=== PATIENT | male | born 1965 | race Caucasian/White ===

== ENCOUNTER 2021-07-09 16:25 | Inpatient (IN) | payer MEDICARE ==
[2021-07-09] MEDS ORDERED: NORCO 7.5/325 MG TAB PO PRN (17:01)
[2021-07-09 17:46] LABS: Absolute Neutrophil Ct (ANC) 13.47 (1.4-6.9); BASOPHIL % 0.2 % (0.0-0.4); Basophil (Absolute #) 0.03 (0-0.4); Eosinophil % 2.1 % (0.00-5.0); Eosinophil (Absolute #) 0.35 (0-0.5); Hemoglobin 9.3 gm/dl (12.5-18.0); Mean Corpuscular Hemoglobin 31.4 pg (26-32); Mean Corpuscular Hgb Concent. 32.1 g/dl (32-36); Mean Platelet Volume 9.2 fl (7.5-11.0); Monocyte (Absolute #) 1.34 (0.0-1.3); Neutrophil % 80.7 % (36.0-66.0); Platelet Count 294 K/mm3 (150-450); Red Blood Count 2.96 M/mm3 (4.1-5.6); Red Cell Distribution Width 15.7 % (11.5-14.0); White Blood Count 16.7 K/mm3 (4.0-10.5)
[2021-07-09] MEDS ORDERED: NEURONTIN 300 MG PO PRN (17:53)
[2021-07-09 17:55] LABS: ALBUMIN 3.7 g/dL (3.5-5.0); ANION GAP 16.6 MEQ/L (5-15); BILIRUBIN,TOTAL 0.2 mg/dL (0.2-1.3); Calcium 10.8 mg/dL (8.4-10.2); Creatinine 1 3.1 mg/dL (0.66-1.25); EST GLOMERULAR FILTRATION RATE 22.1 ML/MIN; Potassium 5.7 mmol/L (3.5-5.1); Total Protein 7.6 g/dL (6.3-8.2)
[2021-07-09] MEDS ORDERED: HYDROCODONE-ACETAMIN 10-325 MG PO PRN (17:55)
[2021-07-09] MEDS: MORPHINE SULFATE 4 MG INJ IV PRN ×2 (18:05→22:18)
[2021-07-09] MEDS: VANCOMYCIN 1 GRAM/200 ML BAG 1 GM/200 ML PIGGYBACK IV SCH (18:05)
[2021-07-09 18:57] LABS: Erythrocyte Sedimentation Rate 129 mm/hr (0-15)
[2021-07-09] MEDS: Zosyn 3.375 GM Vial 3.375 GM in Sodium Chloride 100ML MINI-BAG PLUS 100 ML IV SCH (21:05)
[2021-07-10] MEDS: MORPHINE SULFATE 4 MG INJ IV PRN ×2 (02:46→06:31)
[2021-07-10] MEDS ORDERED: Glutose 15 GM ORAL GEL PO ONE (02:58)
[2021-07-10] MEDS ORDERED: Dextrose 5% -0.45 NaCl 1000 ML 1,000 ML IV SCH (04:45)
[2021-07-10] MEDS: D50W 50 ml Abboject IV ONE (04:47)
[2021-07-10] MEDS: Zosyn 3.375 GM Vial 3.375 GM in Sodium Chloride 100ML MINI-BAG PLUS 100 ML IV SCH ×3 (05:45→21:07)
[2021-07-10] MEDS ORDERED: Lactated Ringers 1,000 ML IV ONE (06:27)
[2021-07-10] MEDS: Lactated Ringers 1,000 ML IV SCH (06:31)
[2021-07-10] MEDS ORDERED: BUPIVACAINE 0.5% VIAL IJ ONE (06:34)
[2021-07-10] MEDS ORDERED: XYLOCAINE 1% HCL 20 ML MDV ONE (06:34)
[2021-07-10] MEDS: VANCOMYCIN 1 GRAM/200 ML BAG 1 GM/200 ML PIGGYBACK IV SCH ×2 (06:40→17:39)
[2021-07-10] MEDS ORDERED: DIPRIVAN 200 MG/20 ML IV ONE (07:26)
[2021-07-10] MEDS ORDERED: SUBLIMAZE 100 MCG/2 ML ONE (07:26)
[2021-07-10] MEDS ORDERED: Versed 2 MG/2 ML Injection ONE (07:38)
--- NOTE | 2021-07-10 08:49 | PCM.NOTE ---
Podiatry Post-Op Plan Podiatry Post-Op Plan: Podiatry Post-Op Plan Post-operative plan is as follows:[Notify return to floor. Continue all previous orders] ANTIBIOTICS: Vancomycin 1g q12h, zoysn 3.375g q8h PAIN CONTROL: [place] 10/325mg q4h moderate pain. Morphine 2 mg q4h severe pain. Discharge with [place] 10/325mg q6h VTE PROPHYLAXIS: Lovenox 40 mg SubQ daily for anticoag. SCD and compression hose to non op leg. Discharge with Xarelto 10mg daily for 30 days. DRESSINGS: Dressing to remain clean and dry. Reinforce with Kerlix/ABD as nece ssary. ACTIVITY: NWB to operative side. THERAPIES: PT/OT consult for gait training, assistive device training, and assessment of functional status with NWB to the right. Incentive Spirometry. PLACEMENT: CM consult for evaluation for possibility of return to home after repeat surgical intervention tentatively planned for Tuesday
[2021-07-10] MEDS ORDERED: Xopenex 1.25 MG/0.5 ML UD NEBULE IH PRN (09:13)
[2021-07-10] MEDS ORDERED: Hydromorphone 1 mg/ml Injection IV PRN (09:16)
[2021-07-10] MEDS ORDERED: Zofran 4 MG/2 ML VIAL IV PRN (09:17)
[2021-07-10] MEDS ORDERED: SUBLIMAZE 100 MCG/2 ML IV PRN (09:17)
[2021-07-10] MEDS ORDERED: Compazine 10 MG/2 ML IV PRN (09:18)
[2021-07-10] MEDS ORDERED: NON-FORMULARY ITEM (Atorvastatin Calcium [Lipitor] 20 MG) PO SCH (10:00)
[2021-07-10] MEDS ORDERED: NON-FORMULARY ITEM (Sitagliptin Phosphate [Januvia] 25 MG) PO SCH (10:00)
[2021-07-10] MEDS ORDERED: NON-FORMULARY ITEM (Escitalopram Oxalate [Lexapro] 20 MG) PO SCH (10:00)
[2021-07-10] MEDS ORDERED: MEDICATION INTERVENTION MC SCH (10:15)
[2021-07-10] MEDS: ZOCOR 20MG PO SCH (10:27)
[2021-07-10] MEDS: ZYLOPRIM 300 MG PO SCH (10:27)
[2021-07-10] MEDS: Toprol Xl 50 MG PO SCH (10:27)
[2021-07-10] MEDS: Lexapro 10 MG PO SCH (10:28)
--- NOTE | 2021-07-10 11:16 | OP ---
SURGERY DATE/TIME: 07/10/2021 0732 PREOPERATIVE DIAGNOSIS: Diabetic neuropathy with peripheral vascular disease, open wound right foot, Charcot osteoarthropathy, diabetic foot ulcer secondary to diabetes mellitus, peripheral neuropathy secondary to diabetes mellitus. POSTOPERATIVE DIAGNOSIS: Diabetic neuropathy with peripheral vascular disease, open wound right foot, Charcot osteoarthropathy, diabetic foot ulcer secondary to diabetes mellitus, peripheral neuropathy secondary to diabetes mellitus. PROCEDURE: Bone debridement right foot wound. SURGEON: Nish Marquez DPM. METHODS ANALYST: None. ANESTHESIA: MAC. HEMOSTASIS: Pressure dressing applied postoperatively. ESTIMATED BLOOD LOSS: Less than 20 cc. MATERIALS: None. INJECTABLES: None. INDICATION FOR SURGERY: Deangelo is a very pleasant 56 year-old male known to my service very well for Charcot and multiple wounds to bilateral lower extremity that has been treated successfully in the past. The patient was lost to follow up approximately one month ago when he had healed out the ulceration down to 0.4 x 0.7 x 0.3. He was doing very well however he was lost to follow up and we were unable to contact him at that time. The patient yesterday presented to my office with extreme pain to the right lower extremity relatively new. X-rays were taken demonstrating no evidence of edema. However, blood work was obtained demonstrated positive for CRP (C-reactive protein) criteria and high risk of sepsis. His white blood cell count was at 16.4 and other labs obtained were concerning therefore the patient was admitted to the hospital and placed on Vancomycin and Zosyn in order to begin to go to OR under this condition. DESCRIPTION OF PROCEDURE AND FINDINGS: The patient was brought to the OR and placed on the OR table in position. At this time adequate MAC sedation was administered. Due to the patient's severe neuropathy, a local was not necessary at that time. The foot was prepped and draped in the typical sterile fashion and lowered onto the surgical field. At this time attention was directed to the right lower extremity where a combination of 15 blade, 10 blade, curettes and rongeurs were utilized to debride any of the infected tissue. At this time a small amount of purulence was demonstrated however not significant. This was approximately 8 cc of purulence. At this time a [place] was utilized to hold the underlying soft tissue to assess for tracking of the wound. At this time there was only found to be some tracking down the base of the fourth metatarsal which was incised and opened in order to evacuate any infection. At this time bone debridement took place at the lateral aspect of the fourth metatarsal and two biopsies were maintained in order to send for microbiological and pathological for permanent in order to assess for the possibility of osteomyelitis. At this time pulse lavage utilized to clear out with copious amounts of sterile saline to clean out the infection site and a dressing consisting of Betadine, Adaptic, 4x4, ABD, Kerlix and GIO was applied to the right lower extremity. The patient was then reversed from anesthesia and returned to postoperative anesthesia care unit with vital signs stable and vascular status intact. The patient handled the procedure without complication and was returned to the floor in stable condition.
[2021-07-10] MEDS ORDERED: MORPHINE SULFATE 2 MG INJ IV PRN (11:23)
[2021-07-10] MEDS ORDERED: HYDROCODONE-ACETAMIN 10-325 MG PO PRN (11:30)
[2021-07-10] MEDS ORDERED: ENOXAPARIN SODIUM SQ SCH (12:00)
[2021-07-10] MEDS: Glucotrol Xl 2.5 MG PO SCH (12:28)
[2021-07-10] MEDS: Januvia 50 MG PO SCH (16:07)
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
[2021-07-10] MEDS ORDERED: HUMALOG SQ PRN (19:51)
[2021-07-11] MEDS: Zosyn 3.375 GM Vial 3.375 GM in Sodium Chloride 100ML MINI-BAG PLUS 100 ML IV SCH (05:11)
[2021-07-11] MEDS: Lactated Ringers 1,000 ML IV SCH (05:36)
[2021-07-11] MEDS: VANCOMYCIN 1 GRAM/200 ML BAG 1 GM/200 ML PIGGYBACK IV SCH (05:36)
[2021-07-11 06:34] LABS: Hematocrit 26.5 % (42-50); Hemoglobin 8.1 gm/dl (12.5-18.0); Mean Cell Volume 101.1 fl (78-100); Mean Corpuscular Hemoglobin 30.9 pg (26-32); Mean Corpuscular Hgb Concent. 30.6 g/dl (32-36); Mean Platelet Volume 9.5 fl (7.5-11.0); Platelet Count 278 K/mm3 (150-450); Red Blood Count 2.62 M/mm3 (4.1-5.6); Red Cell Distribution Width 15.9 % (11.5-14.0); White Blood Count 16.9 K/mm3 (4.0-10.5)
--- NOTE | 2021-07-11 06:46 | PCM.NOTE ---
Podiatry Narrative Note Podiatry Narrative Note: Subjective: Patient seen at bedside with nurse who gives report. Patient has been easily arousable with stimulus however extremely lethargic and falls right back to sleep. Patient has had extreme pain to the foot and knee intermittently. Concerns of some strikethrough on secondary dressing last night however not significant on presentation yesterday afternoon. Subjective examination obtained from nurse report rather than patient as he is not easily arousable. Objective awaiting new hematology and chemistry 07/09/2021 demonstrating white blood cell count of 16.7 QUIN globin 9.3 hematocrit 29.9 absolute lymphocytes 1.34 granulocytes percentage 80% lymphocytes 9.0 ESR 129 absolute granulocytes 13.47 potassium 5.7 chloride 111 carbon dioxide 17 anion gap 16.6 bun 62 creatinine 3.1 alkaline phosphate 159 hemoglobin A1c 6.66 Physical exam: On presentation dressing with moderate serosanguineous drainage on primary dressing check beneath leg with minimal staining Vascular DP and PT pulses are palpable at this time capillary refill is less than 3 seconds some periwound erythema however not no cellulitis lymphangitis or lymphadenopathy on palpation of the posterior or popliteal lymph nodes lymph nodes Dermatological: Wound measuring 3.9 x 2.4 x 0.8 remains clean at this time with no evidence of necrosis or residual infection. Once again minimal periwound erythema. No cellulitis noted. Some fluctuance noted to the dorsal aspect of the foot concerning for residual abscess Neurological protective sensation absent. Epicritic sensation is intact Musculoskeletal: Unable to assess at this time due to patient's lethargic nature. (1) Cellulitis of right lower extremity Current Visit: No Status: Acute Assessment & Plan: IV antibiotics Code(s): L03.115 - CELLULITIS OF RIGHT LOWER LIMB (2) Osteomyelitis Current Visit: No Status: Acute Assessment & Plan: surgical intervention Code(s): M86.9 - OSTEOMYELITIS, UNSPECIFIED Patient examination evaluation. Patient is postoperative day #1 and unable to assess if he is progressing at this time however awaiting blood draw with CBC and CMP in order to assess response to antibiotics. Pharmacy to redose antibiotics at this time as creatinine is increasing in order to prevent DONYA. Likely will plan for repeat debridement in OR on Tuesday with application of wound VAC however prior to I would like to obtain an MRI without contrast to the right foot in order to see if there is any abscess. Patient does have a history of osteomyelitis of the knee that may be the cause of his recent pain which may be next point of interest if MRI is negative Patient does have calf pain as well would like to obtain a venous Doppler in order to assess for DVT We will follow closely
[2021-07-11 06:49] LABS: ALBUMIN 3.3 g/dL (3.5-5.0); ANION GAP 17.5 MEQ/L (5-15); BILIRUBIN,TOTAL 0.2 mg/dL (0.2-1.3); Calcium 10.2 mg/dL (8.4-10.2); Creatinine 1 3.64 mg/dL (0.66-1.25); EST GLOMERULAR FILTRATION RATE 18.4 ML/MIN
[2021-07-11 07:01] LABS: Potassium 6.4 mmol/L (3.5-5.1)
[2021-07-11] MEDS: Kayexylate 15 GM/60 ML PO SCH ×3 (07:58→22:01)
[2021-07-11 08:42] LABS: BAND 2 % (0.0-2.0); Eosinophil 1 % (0.00-3.0); Lymphocytes 14 % (24-44); Monocyte 2 % (0.0-12.0); Neutrophils 81 % (36.-66.); Platelet Estimate NORMAL (NORMAL); Total Cells Counted 100
[2021-07-11] MEDS ORDERED: Sodium Chloride 0.9% 1000 ML 1,000 ML IV SCH ×3 (10:00→15:45)
[2021-07-11] MEDS ORDERED: ENOXAPARIN SODIUM SQ SCH (10:00)
[2021-07-11 10:28] LABS: ARTERIAL BLOOD GAS BASE EXCESS -12.9 (-2.0-2.0); ARTERIAL BLOOD GAS PCO2 59 mmHg (35-45); ARTERIAL BLOOD GAS PO2 88 mmHg (75-100); ARTERIAL BLOOD GAS pH 7.08 (7.35-7.45); HCO3- 17.5 (22-28)
[2021-07-11 10:29] LABS: A-aADO2 38; CARBON DIOXIDE 19 mEq/L (23-27)
[2021-07-11 10:30] LABS: ABG HEMOGLOBIN 10.1; ABG POTASSIUM 6.4 (3.5-5.1); ARTERIAL BLOOD GAS FIO2 28 %; CARBOXYHEMOGLOBIN 0.7 % THgb (0.0-6.9); HGB O2 SAT 96 g/dF (94-100)
[2021-07-11 10:31] LABS: ABG SITE LEFT RADIAL; ALLEN TEST OK? YES
[2021-07-11 10:32] LABS: ARTERIAL BLD GAS O2 SATURATION 97 % (95-100)
[2021-07-11] MEDS ORDERED: Sodium Chloride 0.9% 500 ML 500 ML IV SCH (10:45)
[2021-07-11] MEDS: TYLENOL 325 MG PO PRN ×2 (11:53→18:10)
[2021-07-11] MEDS: Sodium Chloride 0.9% 1000 ML 1,000 ML IV SCH ×3 (11:54→16:37)
[2021-07-11] MEDS: ENOXAPARIN SODIUM SQ SCH ×2 (12:29→23:08)
[2021-07-11] MEDS: FLAGYL 500 MG IVPB 500 MG/100 ML BAG IV SCH ×2 (13:31→22:00)
[2021-07-11] MEDS: Zosyn 2.25 GM 2.25 GM in Sodium Chloride 100ML MINI-BAG PLUS 100 ML IV SCH ×2 (13:52→22:00)
[2021-07-11 14:26] LABS: ARTERIAL BLOOD GAS PCO2 56 mmHg (35-45); ARTERIAL BLOOD GAS PO2 99 mmHg (75-100); ARTERIAL BLOOD GAS pH 7.08 (7.35-7.45)
[2021-07-11 14:27] LABS: A-aADO2 31; ARTERIAL BLD GAS O2 SATURATION 97 % (95-100); ARTERIAL BLOOD GAS BASE EXCESS -13.7 (-2.0-2.0); CARBON DIOXIDE 18 mEq/L (23-27); HCO3- 16.6 (22-28)
[2021-07-11 14:28] LABS: ABG HEMOGLOBIN 10.9; ABG POTASSIUM 6 (3.5-5.1); ARTERIAL BLOOD GAS FIO2 28 %; Methhemoglobin 1.2 % (1.4-1.5)
[2021-07-11 14:29] LABS: ABG SITE LEFT RADIAL; ALLEN TEST OK? YES; ARTERIAL BLD GAS TIDAL VOLUME 550 cc; ARTERIAL BLOOD GAS PEEP 12 cmH2O; ARTERIAL BLOOD GAS VENT MODE AVAPS; ARTERIAL BLOOD GAS VENT RATE 16 /MIN; CARBOXYHEMOGLOBIN 0.2 % THgb (0.0-6.9); HGB O2 SAT 96 g/dF (94-100)
[2021-07-11] MEDS ORDERED: HUMALOG SQ PRN (14:53)
[2021-07-11 15:02] LABS: ANION GAP 18.5 MEQ/L (5-15); Calcium 10.2 mg/dL (8.4-10.2); Creatinine 1 3.6 mg/dL (0.66-1.25); EST GLOMERULAR FILTRATION RATE 18.6 ML/MIN
[2021-07-11 15:14] LABS: Potassium 6.3 mmol/L (3.5-5.1)
[2021-07-11] MEDS ORDERED: TROUGH DRUG LEVELS IJ ONE (17:30)
[2021-07-11] MEDS ORDERED: Dextrose 5%/Water IV Soln. 1000 ML 1,000 ML IV ONE (18:02)
[2021-07-11] MEDS ORDERED: Lasix 40 MG/4 ML IV ONE (18:03)
[2021-07-11] MEDS ORDERED: Calcium Gluconate 10% 1000 MG IV ONE ×2 (18:04→19:10)
[2021-07-11] MEDS ORDERED: HUMULIN R IV ONE (18:06)
[2021-07-11] MEDS ORDERED: Kayexylate 15 GM/60 ML PO ONE (18:09)
[2021-07-11] MEDS ORDERED: D50W 50ML Vial IV ONE (18:30)
[2021-07-11] MEDS: Sodium Bicarbonate 50 MEQ/50 ML VIAL*** 150 MEQ in Dextrose 5%/Water IV Soln. 1000 ML 1... IV SCH (18:44)
--- NOTE | 2021-07-11 18:56 | XRAY ---
Indication: Pain and swelling. Two-dimensional sonogram and color Doppler imaging of the major venous vessels of the right leg performed. Comparison: None No thrombus seen in the examined deep venous vessels of the right leg. Greater saphenous vein not visualized presumed harvested. Veins demonstrate normal compressibility. Venous waveforms are normal with and without augmentation. Impression: Right leg negative for DVT. Comment: Preliminary report was given.
[2021-07-11] MEDS ORDERED: D50W 50 ml Abboject IV ONE (19:00)
[2021-07-11 19:28] LABS: ARTERIAL BLOOD GAS BASE EXCESS -13.1 (-2.0-2.0); ARTERIAL BLOOD GAS PCO2 39 mmHg (35-45); ARTERIAL BLOOD GAS PO2 126 mmHg (75-100); ARTERIAL BLOOD GAS pH 7.18 (7.35-7.45); HCO3- 14.6 (22-28)
[2021-07-11 19:29] LABS: Hematocrit 27.9 % (42-50); Hemoglobin 8.6 gm/dl (12.5-18.0); Mean Cell Volume 101.1 fl (78-100); Mean Corpuscular Hemoglobin 31.2 pg (26-32); Mean Corpuscular Hgb Concent. 30.8 g/dl (32-36); Mean Platelet Volume 8.9 fl (7.5-11.0); Platelet Count 277 K/mm3 (150-450); Red Blood Count 2.76 M/mm3 (4.1-5.6); White Blood Count 17.6 K/mm3 (4.0-10.5)
[2021-07-11 19:29] LABS: A-aADO2 25; ARTERIAL BLD GAS O2 SATURATION 98.7 % (95-100); CARBON DIOXIDE 15 mEq/L (23-27)
[2021-07-11 19:30] LABS: ABG POTASSIUM 6.3 (3.5-5.1); Methhemoglobin 0.9 % (1.4-1.5)
[2021-07-11 19:31] LABS: ABG SITE RIGHT RADIAL; ARTERIAL BLOOD GAS FIO2 28 %; ARTERIAL BLOOD GAS VENT MODE AVAPS; ARTERIAL BLOOD GAS VENT RATE 20 /MIN
[2021-07-11 19:32] LABS: ALLEN TEST OK? YES; CARBOXYHEMOGLOBIN 3.7 % THgb (0.0-6.9); HGB O2 SAT 94.2 g/dF (94-100)
[2021-07-11] MEDS ORDERED: SODIUM CHLORIDE 0.9% IV ONE (19:41)
[2021-07-11] MEDS ORDERED: CALCIUM GLUCONATE IV ONE (19:41)
[2021-07-11] MEDS ORDERED: Sodium Chloride 0.9% 100 ML BAG 100 ML ONE (19:45)
[2021-07-11] MEDS: Hydromorphone 1 mg/ml Injection IV PRN (20:10)
[2021-07-11] MEDS: D50W 50 ml Abboject IV ONE (20:21)
[2021-07-11 20:47] LABS: ALBUMIN 3.4 g/dL (3.5-5.0); BILIRUBIN,TOTAL 0.3 mg/dL (0.2-1.3); Calcium 10.1 mg/dL (8.4-10.2); Creatinine 1 3.79 mg/dL (0.66-1.25); EST GLOMERULAR FILTRATION RATE 17.5 ML/MIN; Total Protein 7.2 g/dL (6.3-8.2)
[2021-07-11 20:49] LABS: Potassium 6.1 mmol/L (3.5-5.1)
--- NOTE | 2021-07-11 22:33 | XRAY ---
Indication: Short of breath. Comparison: None Portable apical lordotic chest demonstrates normal heart and lungs with a few incidental calcified granulomas. Bony thorax intact with mild degenerative changes. Impression: Nonacute chest with chronic features.
[2021-07-12] MEDS: Hydromorphone 1 mg/ml Injection IV PRN ×4 (00:28→22:30)
[2021-07-12] MEDS: Zosyn 2.25 GM 2.25 GM in Sodium Chloride 100ML MINI-BAG PLUS 100 ML IV SCH ×2 (05:43→19:20)
[2021-07-12] MEDS: FLAGYL 500 MG IVPB 500 MG/100 ML BAG IV SCH ×3 (05:43→22:19)
[2021-07-12 06:04] LABS: Hematocrit 26.7 % (42-50); Hemoglobin 8.1 gm/dl (12.5-18.0); Mean Cell Volume 101.5 fl (78-100); Mean Corpuscular Hemoglobin 30.8 pg (26-32); Mean Corpuscular Hgb Concent. 30.3 g/dl (32-36); Mean Platelet Volume 9.1 fl (7.5-11.0); Platelet Count 263 K/mm3 (150-450); Red Blood Count 2.63 M/mm3 (4.1-5.6); Red Cell Distribution Width 16.1 % (11.5-14.0); White Blood Count 16.7 K/mm3 (4.0-10.5)
[2021-07-12 06:26] LABS: ALBUMIN 3.4 g/dL (3.5-5.0); ANION GAP 19.1 MEQ/L (5-15); BILIRUBIN,TOTAL 0.3 mg/dL (0.2-1.3); Creatinine 1 3.84 mg/dL (0.66-1.25); EST GLOMERULAR FILTRATION RATE 17.3 ML/MIN; MAGNESIUM 1.9 mg/dL (1.6-2.3); Total Protein 7.3 g/dL (6.3-8.2)
[2021-07-12 06:49] LABS: Potassium 5.7 mmol/L (3.5-5.1)
[2021-07-12 08:20] LABS: A-aADO2 24; ABG HEMOGLOBIN 8.5; ABG POTASSIUM 5.3 (3.5-5.1); ARTERIAL BLD GAS O2 SATURATION 97.9 % (95-100); ARTERIAL BLOOD GAS BASE EXCESS -11.6 (-2.0-2.0); ARTERIAL BLOOD GAS FIO2 28 %; ARTERIAL BLOOD GAS PCO2 58 mmHg (35-45); ARTERIAL BLOOD GAS PO2 103 mmHg (75-100); ARTERIAL BLOOD GAS pH 7.11 (7.35-7.45); CARBOXYHEMOGLOBIN 0.3 % THgb (0.0-6.9); HCO3- 18.4 (22-28); HGB O2 SAT 96.5 g/dF (94-100); Methhemoglobin 1.1 % (1.4-1.5)
[2021-07-12 08:21] LABS: ABG SITE LEFT BRACHIAL
--- NOTE | 2021-07-12 08:25 | PCM.NOTE ---
Podiatry Narrative Note Podiatry Narrative Note: Subjective: Patient seen at bedside transfered to ICU overnigh with concerns of elevated potassium and less arousable. Seen at bedisde with nurse who gives report. Patient has been only arousable with sternal rubs yet falls directly back to sleep. Patient has had extreme pain to the right Lower extremity intermittently. Per patient he does have hx of osteomyelitis of the knee. Full subjective examination limited. Objective Labs Worsening K no improvement to WBCs Physical exam: Constitutional symptoms worsening On presentation dressing with minimal serosanguineous drainage on primary dressing check beneath leg with minimal staining Vascular DP and PT pulses are palpable at this time capillary refill is less than 3 seconds some reduced periwound erythema to the right lower extremity. Temperatures measured from the tibibal tuberosity to the dorsal aspect of digits are equal and symmetrical. no indications of cellulitis lymphangitis or lymphadenopathy on palpation of the posterior or popliteal lymph nodes lymph nodes. Dermatological: Wound measuring 3.9 x 2.4 x 0.8 remains clean at this time with no evidence of residual necrosis or remaining signs of infection. No purulence noted. No fluctance to any areas of the right lower extremity. Tenderness below fibular head. No cellulitis noted. Fluctance on previous report no longer present. Unable to express any purulence with downward compression of the individual tendon/tendon sheaths Neurological: protective sensation absent. Epicritic sensation is intact Musculoskeletal: Unable to assess at this time due to patient's lethargic nature. (1) Cellulitis of right lower extremity Current Visit: No Status: Acute Assessment & Plan: IV antibiotics Code(s): L03.115 - CELLULITIS OF RIGHT LOWER LIMB (2) Osteomyelitis Current Visit: No Status: Acute Assessment & Plan: surgical intervention Code(s): M86.9 - OSTEOMYELITIS, UNSPECIFIED Patient examination evaluation. Surgical intervention appears to be successful with no residual signs of infection and healthy appearence of wound base in comparsion to preoperative appearance. Patient is postoperative day #2 and unresponsive yet not yet responsive to intervention. MRI without contrast to the right foot in order to see if there is any residual abcess. Patient does have a history of osteomyelitis of the knee that may be the cause of his recent pain which may be next point of interest if MRI is negative Venous doppler negative to the right lower extremity. Dressing changes per myself daily. Will follow closely
[2021-07-12] MEDS: Glucotrol Xl 2.5 MG PO SCH (10:13)
[2021-07-12] MEDS: Januvia 50 MG PO SCH (10:13)
[2021-07-12] MEDS: Lexapro 10 MG PO SCH (10:13)
[2021-07-12] MEDS: Toprol Xl 50 MG PO SCH (10:13)
[2021-07-12] MEDS: ZOCOR 20MG PO SCH (10:14)
[2021-07-12] MEDS: ZYLOPRIM 300 MG PO SCH (10:14)
[2021-07-12] MEDS: ENOXAPARIN SODIUM SQ SCH ×2 (10:38→21:41)
[2021-07-12] MEDS: Sodium Bicarbonate 50 MEQ/50 ML VIAL*** 150 MEQ in Dextrose 5%/Water IV Soln. 1000 ML 1... IV SCH (10:40)
[2021-07-12] MEDS ORDERED: PHARMACY DOSING REQUEST MC ONE (11:21)
[2021-07-12 12:05] LABS: A-aADO2 10; ABG HEMOGLOBIN 9.5; ABG POTASSIUM 5.2 (3.5-5.1); ARTERIAL BLOOD GAS BASE EXCESS -10.7 (-2.0-2.0); ARTERIAL BLOOD GAS FIO2 21 %; ARTERIAL BLOOD GAS PCO2 47 mmHg (35-45); ARTERIAL BLOOD GAS PO2 81 mmHg (75-100); ARTERIAL BLOOD GAS pH 7.18 (7.35-7.45); CARBOXYHEMOGLOBIN 0.4 % THgb (0.0-6.9); HCO3- 17.5 (22-28); HGB O2 SAT 95.6 g/dF (94-100)
[2021-07-12 12:06] LABS: ABG SITE RIGHT RADIAL; ALLEN TEST OK? YES
[2021-07-12] MEDS ORDERED: TROUGH DRUG LEVELS IJ ONE (18:00)
--- NOTE | 2021-07-12 18:58 | XRAY ---
Indication: Unresponsive. Multiple contiguous axial images obtained through the head without contrast. Comparison: None Age-appropriate global atrophy. No acute intracranial hemorrhage, abnormal extra-axial fluid collection, or mass effect. Fourth ventricle is midline without hydrocephalus. Bony calvarium intact. Visualized paranasal sinuses and mastoid air cells are clear. Impression: Negative CT head without contrast exam. Comment: Preliminary interpretation made by [facility]. No critical discrepancy.
[2021-07-13] MEDS ORDERED: Dextrose 5%/Water IV Soln. 1000 ML 1,000 ML IV ONE (03:19)
[2021-07-13] MEDS ORDERED: Sodium Bicarbonate 50 MEQ/50 ML VIAL ONE (03:22)
[2021-07-13] MEDS: Sodium Bicarbonate 50 MEQ/50 ML VIAL*** 150 MEQ in Dextrose 5%/Water IV Soln. 1000 ML 1... IV SCH ×2 (04:02→21:13)
[2021-07-13] MEDS: FLAGYL 500 MG IVPB 500 MG/100 ML BAG IV SCH ×3 (05:35→21:08)
[2021-07-13] MEDS: Zosyn 2.25 GM 2.25 GM in Sodium Chloride 100ML MINI-BAG PLUS 100 ML IV SCH ×2 (05:35→17:15)
[2021-07-13 05:52] LABS: Absolute Neutrophil Ct (ANC) 10.83 (1.4-6.9); BASOPHIL % 0.2 % (0.0-0.4); Basophil (Absolute #) 0.03 (0-0.4); Eosinophil % 1.8 % (0.00-5.0); Eosinophil (Absolute #) 0.23 (0-0.5); Hematocrit 22.3 % (42-50); Lymphocyte (Absolute #) 1.27 (1.0-4.6); Lymphocytes % 9.7 % (24.0-44.0); Mean Cell Volume 99.6 fl (78-100); Mean Corpuscular Hemoglobin 30.8 pg (26-32); Mean Corpuscular Hgb Concent. 30.9 g/dl (32-36); Mean Platelet Volume 9.4 fl (7.5-11.0); Monocyte (Absolute #) 0.76 (0.0-1.3); Monocytes % 5.8 % (0.0-12.0); Neutrophil % 82.5 % (36.0-66.0); Platelet Count 247 K/mm3 (150-450); Red Blood Count 2.24 M/mm3 (4.1-5.6); White Blood Count 13.1 K/mm3 (4.0-10.5)
[2021-07-13 06:07] LABS: ANION GAP 17.3 MEQ/L (5-15); BILIRUBIN,TOTAL 0.3 mg/dL (0.2-1.3); Calcium 9.1 mg/dL (8.4-10.2); Creatinine 1 3.51 mg/dL (0.66-1.25); EST GLOMERULAR FILTRATION RATE 19.2 ML/MIN; Potassium 3.9 mmol/L (3.5-5.1); Total Protein 6.4 g/dL (6.3-8.2)
[2021-07-13 06:12] LABS: Hemoglobin 6.9 gm/dl (12.5-18.0)
[2021-07-13] MEDS: Hydromorphone 1 mg/ml Injection IV PRN ×2 (06:28→10:28)
--- NOTE | 2021-07-13 08:39 | PCM.NOTE ---
Podiatry Narrative Note Podiatry Narrative Note: Podiatry Narrative Note: Subjective: Patient seen at bedside in ICU Report per nurse. WBCs improving, however hgb and creatinine and gfr worsening. Per patient he does have hx of osteomyelitis of the knee. Full subjective examination limited. Objective Labs Worsening K improvement to WBCs Worsening Hgb Physical exam: Constitutional symptoms worsening On presentation dressing with minimal serosanguineous drainage on primary dressing check beneath leg with minimal staining Vascular DP and PT pulses are palpable at this time capillary refill is less than 3 seconds some reduced periwound erythema to the right lower extremity. Temperatures measured from the tibibal tuberosity to the dorsal aspect of digits are equal and symmetrical. no indications of cellulitis lymphangitis or lymphadenopathy on palpation of the posterior or popliteal lymph nodes lymph nodes. Dermatological: Wound measuring 3.9 x 2.4 x 0.8 remains clean at this time with no evidence of residual necrosis or remaining signs of infection. No purulence noted. No fluctance to any areas of the right lower extremity. Tenderness below fibular head. No cellulitis noted. Fluctance on previous report no longer present. Unable to express any purulence with downward compression of the individual tendon/tendon sheaths Neurological: protective sensation absent. Epicritic sensation is intact Musculoskeletal: Unable to assess at this time due to patient's lethargic nature. (1) Cellulitis of right lower extremity Current Visit: No Status: Acute Assessment & Plan: IV antibiotics Code(s): L03.115 - CELLULITIS OF RIGHT LOWER LIMB (2) Osteomyelitis Current Visit: No Status: Acute Assessment & Plan: surgical intervention Code(s): M86.9 - OSTEOMYELITIS, UNSPECIFIED Patient examination evaluation. Surgical intervention appears to be successful with no residual signs of infection and healthy appearance of wound base in comparison to preoperative appearance. Patient is postoperative day #3 and unresponsive but minor improvement in WBC count worsening Hgb. Transfusion anticipated. MRI without contrast to the right foot in order to see if there is any residual abcess. Patient does have a history of osteomyelitis of the knee that may be the cause of his recent pain which may be next point of interest if MRI is negative Venous doppler negative to the right lower extremity. Transfer planned for this AM to [place] at request of Dr. Gandhi for dialysis.
--- NOTE | 2021-07-13 08:39 | XRAY ---
Indication: PICC line placement. Comparison: July 11, 2021. Portable chest demonstrates new left arm PICC line with the tip projecting over the SVC. Remaining heart and lungs unremarkable again with incidental right apical calcified granuloma. No new/acute cardiopulmonary abnormalities. Comment: Preliminary interpretation made by [facility]. No critical discrepancy.
[2021-07-13 08:41] LABS: ABO TYPING O; Antibody Screen NEGATIVE (NEGATIVE); RH TYPING POSITIVE
[2021-07-13 08:42] LABS: CROSS MATCH (PRBC) COMPATIBLE (COMPATIBLE)
[2021-07-13] MEDS ORDERED: Sodium Chloride 0.9% 500 ML 500 ML IV ONE (08:48)
[2021-07-13] MEDS ORDERED: Sodium Chloride 0.9% 500 ML 500 ML IV SCH (09:00)
[2021-07-13] MEDS: ENOXAPARIN SODIUM SQ SCH ×2 (09:59→21:08)
--- NOTE | 2021-07-13 13:36 | PCM.NOTE ---
Date and Time: 07/13/21 1334 Subjective Assessment: Patient is in renal failure and Marketing Operations Associate is transfering patient to [place]. Objective Exam Wound Assessment: Skin/Wound Assessment Wound/Incision Assessment Start: 07/09/21 17:32 Text: Status: Active Freq: Q6H Protocol: Document 07/13/21 08:00 DS (Rec: 07/13/21 09:35 DS [id number]) Wound/Incision Assessment Left Heel Wound Assessment Shift Assessment Wound Type Pressure Ulcer Wound Stage Unstageable Drainage Amount None Drainage Odor None/Absent General Appearance Open to air,Clean/Dry, Blackened Wound Bed Greatest Portion Black (Eschar) Comment 2 unstageable black areas noted, anterior area 2x3 cm, posterior area 2x1.5 cm. No open areas at this time. Foam boot on Right Lateral Foot Wound Assessment Shift Assessment Wound Type Diabetic Ulcer Dressing Status Dry & Intact Drainage Amount None Primary Dressing Gauze Pads Secondary Dressing Gauze Roll/Wrap Wound Photo Photo Taken No OBJECTIVE DATA Vital Signs: Vital Signs - 24 hr Temp Pulse Resp BP Pulse Ox 07/13/21 12:00 72 07/13/21 11:40 97.7 F 72 23 125/64 98 07/13/21 08:00 80 07/13/21 07:25 97.6 F 80 15 123/68 97 07/13/21 07:02 99 07/13/21 04:05 97.5 F 70 23 147/70 99 07/13/21 04:00 77 07/13/21 00:00 74 07/12/21 23:00 97.5 F 73 20 152/55 99 07/12/21 20:00 70 07/12/21 19:30 97.8 F 77 18 183/73 97 07/12/21 19:15 99 07/12/21 17:00 97.7 F 83 19 143/76 96 07/12/21 16:00 76 Pain Assessment - Last Documented Pain Intensity 3 Pain Scale Used [facility] Intake and Output: Intake & Output 07/11/21 07/12/21 07/13/21 07/14/21 11:59 11:59 11:59 11:59 Intake Total 189 3076 2343 Output Total 6416 1400 1275 Balance -1749 8486 1298 Weight 158.5 kg 167.8 kg 164.5 kg Lab Results: Lab Results-Last 24 Hours 07/12/21 07/12/21 07/12/21 Range/Units 17:57 18:31 23:38 WBC (4.0-10.5) K/mm3 RBC (4.1-5.6) M/mm3 Hgb (12.5-18.0) gm/dl Hct (42-50) % MCV (78-100) fl MCH (26-32) pg MCHC (32-36) g/dl RDW (11.5-14.0) % Plt Count (150-450) K/mm3 MPV (7.5-11.0) fl Gran % (36.0-66.0) % Eos # (Auto) (0-0.5) Absolute Lymphs (auto) (1.0-4.6) Absolute Monos (auto) (0.0-1.3) Lymphocytes % (24.0-44.0) % Monocytes % (0.0-12.0) % Eosinophils % (0.00-5.0) % Basophils % (0.0-0.4) % Absolute Granulocytes (1.4-6.9) Basophils # (0-0.4) Sodium (137-145) mmol/L Potassium (3.5-5.1) mmol/L Chloride (98-107) mmol/L Carbon Dioxide (22-30) mmol/L Anion Gap (5-15) MEQ/L BUN (9-20) mg/dL Creatinine (0.66-1.25) mg/dL Estimated GFR ML/MIN Glucose (74-106) mg/dL POC Glucometer 99 101 (74 to 106) mg/dL Calcium (8.4-10.2) mg/dL Total Bilirubin (0.2-1.3) mg/dL AST (17-59) U/L ALT (0-50) U/L Alkaline Phosphatase (38-126) U/L Serum Total Protein (6.3-8.2) g/dL Albumin (3.5-5.0) g/dL Vancomycin Trough 19.85 (10-20) ug/mL ABO Group Rh Factor Antibody Screen (NEGATIVE) Crossmatch (COMPATIBLE) 07/13/21 07/13/21 07/13/21 Range/Units 04:55 04:55 05:19 WBC 13.1 H (4.0-10.5) K/mm3 RBC 2.24 L (4.1-5.6) M/mm3 Hgb 6.9 L* (12.5-18.0) gm/dl Hct 22.3 L (42-50) % MCV 99.6 (78-100) fl MCH 30.8 (26-32) pg MCHC 30.9 L (32-36) g/dl RDW 16.0 H (11.5-14.0) % Plt Count 247 (150-450) K/mm3 MPV 9.4 (7.5-11.0) fl Gran % 82.5 H (36.0-66.0) % Eos # (Auto) 0.23 (0-0.5) Absolute Lymphs (auto) 1.27 (1.0-4.6) Absolute Monos (auto) 0.76 (0.0-1.3) Lymphocytes % 9.7 L (24.0-44.0) % Monocytes % 5.8 (0.0-12.0) % Eosinophils % 1.8 (0.00-5.0) % Basophils % 0.2 (0.0-0.4) % Absolute Granulocytes 10.83 H (1.4-6.9) Basophils # 0.03 (0-0.4) Sodium 145 (137-145) mmol/L Potassium 3.9 D (3.5-5.1) mmol/L Chloride 113 H (98-107) mmol/L Carbon Dioxide 18 L (22-30) mmol/L Anion Gap 17.3 H (5-15) MEQ/L BUN 68 H (9-20) mg/dL Creatinine 3.51 H (0.66-1.25) mg/dL Estimated GFR 19.2 ML/MIN Glucose 137 H (74-106) mg/dL POC Glucometer 127 H (74 to 106) mg/dL Calcium 9.1 (8.4-10.2) mg/dL Total Bilirubin 0.30 (0.2-1.3) mg/dL AST 34 (17-59) U/L ALT 29 (0-50) U/L Alkaline Phosphatase 165 H (38-126) U/L Serum Total Protein 6.4 (6.3-8.2) g/dL Albumin 3.0 L (3.5-5.0) g/dL Vancomycin Trough (10-20) ug/mL ABO Group Rh Factor Antibody Screen (NEGATIVE) Crossmatch (COMPATIBLE) 07/13/21 07/13/21 07/13/21 Range/Units 07:20 07:20 07:20 WBC (4.0-10.5) K/mm3 RBC (4.1-5.6) M/mm3 Hgb (12.5-18.0) gm/dl Hct (42-50) % MCV (78-100) fl MCH (26-32) pg MCHC (32-36) g/dl RDW (11.5-14.0) % Plt Count (150-450) K/mm3 MPV (7.5-11.0) fl Gran % (36.0-66.0) % Eos # (Auto) (0-0.5) Absolute Lymphs (auto) (1.0-4.6) Absolute Monos (auto) (0.0-1.3) Lymphocytes % (24.0-44.0) % Monocytes % (0.0-12.0) % Eosinophils % (0.00-5.0) % Basophils % (0.0-0.4) % Absolute Granulocytes (1.4-6.9) Basophils # (0-0.4) Sodium (137-145) mmol/L Potassium (3.5-5.1) mmol/L Chloride (98-107) mmol/L Carbon Dioxide (22-30) mmol/L Anion Gap (5-15) MEQ/L BUN (9-20) mg/dL Creatinine (0.66-1.25) mg/dL Estimated GFR ML/MIN Glucose (74-106) mg/dL POC Glucometer (74 to 106) mg/dL Calcium (8.4-10.2) mg/dL Total Bilirubin (0.2-1.3) mg/dL AST (17-59) U/L ALT (0-50) U/L Alkaline Phosphatase (38-126) U/L Serum Total Protein (6.3-8.2) g/dL Albumin (3.5-5.0) g/dL Vancomycin Trough (10-20) ug/mL ABO Group O Rh Factor POSITIVE Antibody Screen NEGATIVE (NEGATIVE) Crossmatch COMPATIBLE COMPATIBLE (COMPATIBLE) 07/13/21 Range/Units 11:50 WBC (4.0-10.5) K/mm3 RBC (4.1-5.6) M/mm3 Hgb (12.5-18.0) gm/dl Hct (42-50) % MCV (78-100) fl MCH (26-32) pg MCHC (32-36) g/dl RDW (11.5-14.0) % Plt Count (150-450) K/mm3 MPV (7.5-11.0) fl Gran % (36.0-66.0) % Eos # (Auto) (0-0.5) Absolute Lymphs (auto) (1.0-4.6) Absolute Monos (auto) (0.0-1.3) Lymphocytes % (24.0-44.0) % Monocytes % (0.0-12.0) % Eosinophils % (0.00-5.0) % Basophils % (0.0-0.4) % Absolute Granulocytes (1.4-6.9) Basophils # (0-0.4) Sodium (137-145) mmol/L Potassium (3.5-5.1) mmol/L Chloride (98-107) mmol/L Carbon Dioxide (22-30) mmol/L Anion Gap (5-15) MEQ/L BUN (9-20) mg/dL Creatinine (0.66-1.25) mg/dL Estimated GFR ML/MIN Glucose (74-106) mg/dL POC Glucometer 111 H (74 to 106) mg/dL Calcium (8.4-10.2) mg/dL Total Bilirubin (0.2-1.3) mg/dL AST (17-59) U/L ALT (0-50) U/L Alkaline Phosphatase (38-126) U/L Serum Total Protein (6.3-8.2) g/dL Albumin (3.5-5.0) g/dL Vancomycin Trough (10-20) ug/mL ABO Group Rh Factor Antibody Screen (NEGATIVE) Crossmatch (COMPATIBLE) Radiology Exams: Radiology Procedures Category Date Time Status CHEST 1 VIEW (PORTABLE) Stat Exams 07/11/21 17:30 Completed HEAD WITHOUT CONTRAST [CT] Urgent Exams 07/12/21 08:11 Completed Portable Chest [CHEST 1 VIEW (PORTABLE)] Stat Exams 07/12/21 17:11 Completed Multi-Disciplinary Progress Notes: Multi-Disciplinary Progress Notes 07/13/21 11:42 Physical Therapy Note by Masha Galindo P.T. NOT APPROPRIATE AT THIS TIME. PT. ON BIPAP NOW AND PLAN IS TO TRANSFER TO [facility] WHEN BED IS AVAILABLE. CANCEL P.T. ORDERS. AT THIS TIME. Initialized on 07/13/21 11:42 - END OF NOTE
[2021-07-13 15:26] LABS: Hematocrit 26.3 % (42-50); Hemoglobin 8.3 gm/dl (12.5-18.0)
[2021-07-14] MEDS: Hydromorphone 1 mg/ml Injection IV PRN ×3 (05:01→16:31)
[2021-07-14] MEDS: FLAGYL 500 MG IVPB 500 MG/100 ML BAG IV SCH ×2 (05:13→14:12)
[2021-07-14] MEDS: Zosyn 2.25 GM 2.25 GM in Sodium Chloride 100ML MINI-BAG PLUS 100 ML IV SCH ×2 (05:49→18:18)
[2021-07-14 06:31] LABS: Absolute Neutrophil Ct (ANC) 3.91 (1.4-6.9); BASOPHIL % 0.2 % (0.0-0.4); Basophil (Absolute #) 0.01 (0-0.4); Eosinophil % 3.7 % (0.00-5.0); Eosinophil (Absolute #) 0.19 (0-0.5); Hematocrit 38.9 % (42-50); Hemoglobin 12.7 gm/dl (12.5-18.0); Lymphocyte (Absolute #) 0.71 (1.0-4.6); Lymphocytes % 13.8 % (24.0-44.0); Mean Cell Volume 94.9 fl (78-100); Mean Corpuscular Hgb Concent. 32.6 g/dl (32-36); Mean Platelet Volume 9.1 fl (7.5-11.0); Monocyte (Absolute #) 0.32 (0.0-1.3); Monocytes % 6.2 % (0.0-12.0); Neutrophil % 76.1 % (36.0-66.0); Platelet Count 119 K/mm3 (150-450); Red Cell Distribution Width 16.2 % (11.5-14.0); White Blood Count 5.1 K/mm3 (4.0-10.5)
[2021-07-14 06:43] LABS: ALBUMIN 2.7 g/dL (3.5-5.0); ANION GAP 13.3 MEQ/L (5-15); BILIRUBIN,TOTAL 0.3 mg/dL (0.2-1.3); Calcium 8.6 mg/dL (8.4-10.2); Creatinine 1 2.72 mg/dL (0.66-1.25); EST GLOMERULAR FILTRATION RATE 25.7 ML/MIN; Potassium 3.3 mmol/L (3.5-5.1)
[2021-07-14] MEDS ORDERED: Magnesium 1 Gm / 100 Ml D5W*** 100 ML IV ONE (08:30)
[2021-07-14] MEDS: ENOXAPARIN SODIUM SQ SCH (08:57)
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
[2021-07-14] MEDS: Sodium Bicarbonate 50 MEQ/50 ML VIAL*** 150 MEQ in Dextrose 5%/Water IV Soln. 1000 ML 1... IV SCH (14:58)
--- NOTE | 2021-07-14 15:05 | CONS ---
CONSULT DATE: 07/13/2021 REASON FOR CONSULTATION: HISTORY OF PRESENT ILLNESS: Mr. Lucas is a 56 y/o male who has been hospitalized at [facility] after undergoing debridement of osteomyelitis and cellulitis of right lower extremity. Post debridement, patient was noted to have respiratory difficulty with ABG's indicating metabolic acidosis. He was treated with noninvasive ventilation. Patient was also poorly responsive. In addition, he was noted to have acute on chronic renal failure. A nephrology consultation was requested. He was deemed appropriate candidate for transfer for higher level of care, although due to bed crunch, he has been maintained at [facility]. Patient did "wake up" meaningfully over the past 24 hours. He has been on BIPAP for a large part of the day. Currently, he is on nasal cannula and is awake. He answer simple questions appropriately. Does not appear to be in any distress. PAST MEDICAL HISTORY: Positive for history of diabetes mellitus, dyslipidemia, anxiety/depression, obesity, hypertension. His body habitus is suggestive of underlying obstructive sleep apnea. Patient also has chronic renal insufficiency. PAST SURGICAL HISTORY: As above. PERSONAL AND SOCIAL HISTORY: He is a daily smoker. ALLERGIES: NOTED. CURRENT MEDICATIONS: Reviewed. PHYSICAL EXAMINATION: This is a middle-aged male who appears fairly comfortable, but confused, but answers simple questions appropriately. Vital signs noted. HEENT: Normocephalic. Oral exam is limited. Oropharynx is small. NECK: Supple. CVS: 1st and 2nd heart sounds normal, regular rhythm. RESPIRATORY: Shows diminished breath sounds. ABDOMEN: Obese. EXTREMITIES: Lower extremities show chronic changes with dressings in place. Hgb 8.3, Hct 26.3, sodium 145, potassium 3.9, chloride 113, bicarb 18, glucose 137, BUN 68, creatinine 3.5. Vancomycin trough is 19.8. ABG is reviewed. Chest x-ray noted as well. CT head was negative. ASSESSMENT: This is a 56 y /o male admitted with: 1. ACUTE ACIDEMIA METABOLIC IN NATURE CORRECTED WITH NONINVASIVE VENTILATION. 2. BODY HABITUS SUGGESTIVE OF OBSTRUCTIVE SLEEP APNEA. 3. CHRONIC RENAL INSUFFICIENCY. 4. OSTEOMYELITIS AND CELLULITIS BEING MANAGED BY SURGERY/PODIATRY. 5. HISTORY OF HYPERTENSION. 6. DIABETES MELLITUS. 7. OBESITY. 8. ENCEPHALOPATHY, METABOLIC IN NATURE, SIGNIFICANTLY IMPROVED. RECOMMENDATIONS: 1. Patient is stable from pulmonary standpoint. 2. Advised continuation of noninvasive ventilation during night and PRN during day. 3. Incentive spirometry. 4. Deep vein thrombosis prophylaxis. 5. Antibiotics per surgery. 6. Renal follow-up noted. 7. Continue other supportive care. Patient is stable from pulmonary standpoint. Will be available as needed.
[2021-07-14 17:05] LABS: A-aADO2 19; ABG HEMOGLOBIN 9.3; ABG POTASSIUM 3.2 (3.5-5.1); ARTERIAL BLD GAS O2 SATURATION 96.2 % (95-100); ARTERIAL BLOOD GAS BASE EXCESS 0.5 (-2.0-2.0); ARTERIAL BLOOD GAS FIO2 21 %; ARTERIAL BLOOD GAS PCO2 41 mmHg (35-45); ARTERIAL BLOOD GAS PO2 79 mmHg (75-100); CARBOXYHEMOGLOBIN 0.6 % THgb (0.0-6.9); HCO3- 25.4 (22-28); HGB O2 SAT 94.5 g/dF (94-100); Methhemoglobin 1.2 % (1.4-1.5)
[2021-07-14 17:06] LABS: ABG SITE RIGHT RADIAL; ALLEN TEST OK? YES
[2021-07-14] MEDS ORDERED: TRANDATE 20 MG/4 ML SYRINGE IV PRN (17:14)
[2021-07-14] MEDS ORDERED: POTASSIUM CHLORIDE 20 mEq IN WATER 100ML 20 MEQ/100 ML BAG IV SCH (17:15)
[2021-07-14] MEDS: Magnesium 1 Gm / 100 Ml D5W*** 100 ML IV SCH ×2 (17:39→18:13)
[2021-07-14] MEDS ORDERED: Sodium Chloride 0.9% 500 ML 500 ML IV ONE (17:44)
[2021-07-14] MEDS ORDERED: Sodium Chloride 0.9% 500 ML 500 ML IV SCH (18:00)
[2021-07-14 19:12] VITALS: BP 167/101; PULSE 73; O2SAT 99
--- NOTE | 2021-07-15 08:47 | XRAY ---
Indication: Aphasia. Multiple contiguous images obtained through the head without contrast. Comparison: July 12, 2021. A few images near the vertex are degraded by motion artifact. Grossly stable age-appropriate global atrophy. Again no gross acute intracranial hemorrhage, abnormal extra-axial fluid collection, or mass effect. Fourth ventricle is midline without hydrocephalus. Bony calvarium remains grossly intact. Impression: Motion artifact. Grossly stable negative CT head without contrast exam.
--- NOTE | 2021-07-15 17:16 | PCM.DS ---
Discharge Summary Date of Admission: 07/09/21 16:25 Date of Discharge: 07/14/2021 Admitting Physician: SHMUEL APPIAH Consults: Consults on Case 07/09/21 16:25 Consult Podiatry ROUTINE 07/11/21 09:49 Consult Nephrology ROUTINE 07/12/21 09:48 Consult Pulmonology ROUTINE Primary Care Provider: BARNEY PATEL MD Allergies Allergies carvedilol Allergy (Severe, Verified 07/09/21 17:44) Swelling meperidine [From Demerol] Allergy (Mild, Verified 07/09/21 17:23) Nausea and Vomiting Hospital Summary - Hospital Course Hospital Course: Pt. admitted undergoing surgery on 06/09/21, pt. subsequently went into renal failure which his noted he has done previously, pt. was arousable but r emained very drowsy, with worsening of his co2 retention, pulmonary and nephrology were consulted and decision was made to transfer to hospital capable of doing dialysis, a bed was made available the patient remained stable although had very little improvement and never completely awoke after surgery, CT of head was done, which did not show any subsequent lesions. - Vitals & Intake/Output Vital Signs: Vital Signs Temperature 97.3 F 07/14/21 19:12 Pulse Rate 73 07/14/21 19:12 Respiratory Rate 16 07/14/21 19:12 Blood Pressure 167/101 07/14/21 19:12 O2 Sat by Pulse Oximetry 99 07/14/21 19:12 Intake & Output: Intake & Output 07/13/21 07/14/21 07/15/21 07/16/21 11:59 11:59 11:59 11:59 Intake Total 2573 3250 0 Output Total 1275 2800 3100 Balance 1298 450 -3100 Weight 164.5 kg 163.1 kg - Lab Result Diagrams: 07/14/21 04:30 07/14/21 04:30 Lab Results-Last 24 Hrs: Lab Results-Last 24 Hours 07/09/21 07/10/21 07/14/21 Range/Units 17:24 08:13 18:07 POC Glucometer 146 H (74 to 106) mg/dL C-Reactive Prot, Quant 261 (.) mg/L Surg PTH Diagnosis See Note H Micro Results-Entire Visit: Microbiology 07/12/21 13:10 Urine Culture - Final Urine, Indwelling Catheter NO GROWTH Accuchecks Date 07/14/21 Time 18:10 - Radiology Exams Ordered Rad Exams-Entire Visit: Radiology Procedures Category Date Time Status HEAD WITHOUT CONTRAST [CT] Routine Exams 07/14/21 17:00 Completed - Procedures and Test Procedures and Tests throughout Hospitalization: Therapy Orders & Screens 07/09/21 17:32 OT Screen per Nursing Assess ONCE Comment: Protocol Order Physician Instructions: Greater than 3 points order OT Admission Screening Reason For Exam: Triggered on Admission Diagnosis: Osteomyelitis,Cellulitis RLE Open Wound/Cellutlitis/Pressure Ulcers: Yes Acute Fx/ORIF/Change in wt bearing status: Yes Severe MUSCULOSKELETAL pain: Yes ADL Dysfunction: No Acute CVA w/Hemiparesis/Hemiplegia: No Decreased Functional Mobility/Strength: Yes Sprain/Strain: No Acute Post-op Mobility Dysfunction: No Total Points: 16 PT Screen per Nursing Assess ONCE Comment: Protocol Order Physician Instructions: Greater than 3 points order PT Admission Screenin Reason For Exam: Triggered on Admission Diagnosis: Osteomyelitis,Cellulitis RLE Open Wound/Cellutlitis/Pressure Ulcers: Yes Acute Fx/ORIF/Change in wt bearing status: Yes Severe MUSCULOSKELETAL pain: Yes ADL Dysfunction: No Acute CVA w/Hemiparesis/Hemiplegia: No Decreased Functional Mobility/Strength: Yes Sprain/Strain: No Acute Post-op Mobility Dysfunction: No Total Points: 16 Smoking Cessation Education ONCE Comment: Diagnosis: Osteomyelitis,Cellulitis RLE Smoking Status: Current every day smoker How long have you smoked: 36 YEARS Have you smoked in the past 12 months: Yes Approximately how many cigarettes per day: 10 Do you dip or chew tobacco: No 07/10/21 11:02 OT Eval and Treat ( Order) ONCE Comment: Consulting Provider: MYRANDA GARNER Physician Instructions: Reason For Exam: Evaluate: Yes Treat: Yes Reason for Evaluation: post op RLE,gait training,assist device training,assessment Diagnosis: Osteomyelitis,Cellulitis RLE Incentive Spirometry UD Comment: Diagnosis: Osteomyelitis,Cellulitis RLE 07/10/21 19:41 Oxygen Nasal Cannula 2 lpm Comment: Diagnosis: Osteomyelitis,Cellulitis RLE 07/11/21 09:58 BiPap/CPAP ROUTINE Comment: Diagnosis: Osteomyelitis,Cellulitis RLE 07/14/21 16:43 Speech Therapy Eval & Treat [ST Eval & Treat (MD Order)] .as ordered Comment: Physician Instructions: Reason For Exam: Evaluate: Yes Treat: Yes Reason for Eval: aphasia; not following commands; decreased LOC; assess for ability to swallow pills/food Diagnosis: Osteomyelitis,Cellulitis RLE Discharge Exam General Appearance: no apparent distress, lethargy, obese Neurologic Exam: cooperative Eye Exam: PERRL, EOMI, eyes nml inspection Ears, Nose, Throat Exam: normal ENT inspection Neck Exam: normal inspection, non-tender Respiratory Exam: normal breath sounds, lungs clear, diminished breath sounds Cardiovascular Exam: regular rate/rhythm, normal heart sounds Gastrointestinal/Abdomen Exam: soft, normal bowel sounds, No tenderness, No distention Male Genitalia Exam: deferred Rectal Exam: deferred (dressing on surgical foot for osteomyelitis/ debridement) Final Diagnosis/Problem List - Final Discharge Diagnosis/Problem (1) Cellulitis of right lower extremity Status: Acute Code(s): L03.115 - CELLULITIS OF RIGHT LOWER LIMB (2) Osteomyelitis Status: Acute Code(s): M86.9 - OSTEOMYELITIS, UNSPECIFIED (3) Renal failure Status: Acute (4) Hypercarbia Status: Acute Code(s): R06.89 - OTHER ABNORMALITIES OF BREATHING - Discharge Discharge Date: 07/14/21 Disposition: DC TO [facility] Condition: Serious Prescriptions: No Action Metoprolol Succinate 50 mg [Toprol Xl 50 MG] 50 mg PO DAILY Glipizide 2.5 mg [Glucotrol Xl 2.5 MG] 2.5 mg PO DAILY Gabapentin 300 mg [Neurontin 300 mg] 300 mg PO TIDPRN PRN PRN Reason: Pain Atorvastatin Calcium [Lipitor] 20 mg PO DAILY Sitagliptin Phosphate [Januvia] 25 mg PO DAILY Hydrocodone/Acetaminophen [Hydrocodone-Acetamin 10-325 mg] 1 each PO QIDPRN PRN PRN Reason: Pain Escitalopram Oxalate [Lexapro] 20 mg PO DAILY Allopurinol 300 mg [Zyloprim 300 mg] 300 mg PO DAILY Doxycycline Hyclate 100 mg [Vibramycin 100 MG] 100 mg PO [id number] Follow up with: MYRANDA GARNER DPM [ACTIVE STAFF] - BARNEY PATEL MD [Primary Care Provider] - Forms: Ambulance Transport Record, Transfer Record Inter-Agency
== END 2021-07-14 19:30 | disposition home or self-care (01) | DRG 579 ==
LOC: MED SURG 16:25 → ICU 07-11 09:58
PROVIDERS: ADMIT Family Medicine; ATTEND Family Medicine
PROC: 0QBN0ZX Excision of Right Metatarsal, Open Approach, Diagnostic (ICD-10-PCS; principal; 2021-07-10)
DX: L03.115 Cellulitis of right lower limb (principal); J96.00 Acute respiratory failure, unspecified whether with hypoxia or hypercapnia; N17.0 Acute kidney failure with tubular necrosis; A41.9 Sepsis, unspecified organism; M86.18 Other acute osteomyelitis, other site; N18.4 Chronic kidney disease, stage 4 (severe); E87.2 Acidosis; G93.40 Encephalopathy, unspecified; I12.9 Hypertensive chronic kidney disease with stage 1 through stage 4 chronic kidney disease, or unspecified chronic kidney disease; E11.22 Type 2 diabetes mellitus with diabetic chronic kidney disease; E11.621 Type 2 diabetes mellitus with foot ulcer; E11.40 Type 2 diabetes mellitus with diabetic neuropathy, unspecified; Z79.899 Other long term (current) drug therapy; M14.671 Charcot's joint, right ankle and foot; I10 Essential (primary) hypertension; S91.301A Unspecified open wound, right foot, initial encounter; L89.620 Pressure ulcer of left heel, unstageable; I73.9 Peripheral vascular disease, unspecified; R26.2 Difficulty in walking, not elsewhere classified; E87.5 Hyperkalemia; D64.9 Anemia, unspecified; R41.82 Altered mental status, unspecified; Z20.822 Contact with and (suspected) exposure to COVID-19
CPT/HCPCS: 28005; 36415; 36430; 36600; 70450; 71045; 73610; 73630; 80048; 80053; 80202; 82140; 82375; 82607; 82728; 82746; 82803; 82947; 83036; 83540; 83605; 83735; 84484; 85014; 85018; 85025; 85027; 85652; 86140; 86850; 86900; 86901; 86922; 87086; 88311; 93971; 94002; 94003; 94762; 99213; 99232; P9016; U0003; 88305; 94760; J0610; J1170; J1650; J1815; J1940; J2250; J2270; J2543; J2704; J3010; J3475; J3480; A9270-GY; J3370

== ENCOUNTER 2023-04-17 16:14 | Emergency (ER) | payer MEDICARE ==
[2023-04-17] MEDS ORDERED: Sodium Chloride 0.9% 1000 ML 1,000 ML IV STA (16:34)
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
[2023-04-17] MEDS ORDERED: Sodium Chloride 0.9% 1000 ML 1,000 ML ONE (16:56)
[2023-04-17 17:00] LABS: Absolute Neutrophil Ct (ANC) 6.66 x10^3/uL (1.4-6.9); BASOPHIL % 0.3 % (0.0-0.4); Basophil (Absolute #) 0.03 x10^3/uL (0-0.4); Eosinophil % 3.1 % (0.00-5.0); Eosinophil (Absolute #) 0.29 x10^3/uL (0-0.5); Hematocrit 26.8 % (42-50); Hemoglobin 8.1 g/dL (12.5-18.0); IMMATURE GRAN # 0.02 x10^3u/L (0.00-0.03); IMMATURE GRAN % 0.2 % (0.00-0.4); Lymphocyte (Absolute #) 1.69 x10^3/uL (1.0-4.6); Lymphocytes % 18.1 % (24.0-44.0); Mean Cell Volume 100.4 fL (78-100); Mean Corpuscular Hemoglobin 30.3 pg (26-32); Mean Corpuscular Hgb Concent. 30.2 g/dL (32-36); Mean Platelet Volume 9.3 fL (7.5-11.0); Monocyte (Absolute #) 0.64 x10^3/uL (0.0-1.3); Monocytes % 6.9 % (0.0-12.0); Neutrophil % 71.4 % (36.0-66.0); Platelet Count 262 x10^3/uL (150-450); Red Blood Count 2.67 x10^6/uL (4.1-5.6); Red Cell Distribution Width 20.5 % (11.5-14.0); White Blood Count 9.3 x10^3/uL (4.0-10.5)
[2023-04-17 17:12] LABS: ALBUMIN 3.1 g/dL (3.5-5.0); ANION GAP 16.8 MEQ/L (5-15); BILIRUBIN,TOTAL 0.3 mg/dL (0.2-1.3); Calcium 9.4 mg/dL (8.4-10.2); Creatinine 1 4.1 mg/dL (0.66-1.25); EST GLOMERULAR FILTRATION RATE 15.9 ML/MIN; INR 0.96 (0.8-3.0); PROTIME 10.5 SECONDS (9.4-12.5); PTT 31.9 SECONDS (25.1-36.5); Potassium 4.7 mmol/L (3.5-5.1); Total Protein 8.1 g/dL (6.3-8.2)
[2023-04-17] MEDS ORDERED: PIPERACILLIN/TAZOBACTAM 3.375 GM in Sodium Chloride 100ML MINI-BAG PLUS 100 ML IV ONE (18:01)
[2023-04-17] MEDS ORDERED: Sodium Chloride 100ML MINI-BAG PLUS 100 ML IV ONE (18:04)
[2023-04-17] MEDS ORDERED: PIPERACILLIN/TAZOBACTAM IV ONE (18:04)
[2023-04-17 18:53] LABS: ADD URINE CULTURE? NO (NO); Appearance Clear (Clear); Bacteria None Seen /HPF (None Seen); Bilirubin Negative (Negative); Blood Negative (Negative); Epithelial Cells None Seen /HPF (None Seen); Glucose, Urine 100 mg/dL (Negative); Ketones Negative (Negative); Leukocyte Esterase Negative (Negative); Nitrite Negative (Negative); Ph 5.5 (4.6-8.0); Protein,Urine Dip 100 (Negative); RBC 0-2 /HPF (0-5); Urobilinogen 0.2 mg/dL (0.2); WBC 0-2 /HPF (0-5)
[2023-04-17] MEDS ORDERED: VANCOMYCIN 1 GRAM/200 ML BAG 1 GM/200 ML PIGGYBACK IV ONE (19:20)
--- NOTE | 2023-04-17 19:42 | XRAY ---
Indication: Pain and swelling. Two-dimensional sonogram and color Doppler imaging of the major venous vessels of the right leg performed. Comparison: July 11, 2021 No thrombus seen in the examined deep venous vessels of the right leg including greater saphenous vein. Veins demonstrate normal compressibility. Venous waveforms are normal with and without augmentation. Incidental prominent 2.4 x 4.3 cm right groin lymph node presumed reactive. Impression: Right leg negative for DVT. Incidental prominent right groin lymph node presumed reactive. Comment: Preliminary report was given.
[2023-04-17 20:14] VITALS: BP 128/76; PULSE 72; O2SAT 97
[2023-04-18 01:01] LABS: Folate (Folic Acid) 4.1 ng/mL (2.76 - >20)
[2023-04-19 13:07] LABS: Eosinophils, Fluid 0 % (Not Estab.); Lymphocytes, Fluid 1 % (Not Estab.); Macrophages 2 % (Not Estab.)
[2023-04-19 17:59] LABS: LD, Body Fluid 3007 IU/L (.)
== END 2023-04-17 20:14 | disposition short-term general hospital (02) ==
LOC: ED 16:14
DX: N17.9 Acute kidney failure, unspecified (principal); M79.89 Other specified soft tissue disorders; M25.461 Effusion, right knee; S91.301A Unspecified open wound, right foot, initial encounter; L08.9 Local infection of the skin and subcutaneous tissue, unspecified; D53.9 Nutritional anemia, unspecified; E78.5 Hyperlipidemia, unspecified; I12.9 Hypertensive chronic kidney disease with stage 1 through stage 4 chronic kidney disease, or unspecified chronic kidney disease; E11.22 Type 2 diabetes mellitus with diabetic chronic kidney disease; N18.9 Chronic kidney disease, unspecified; Z79.84 Long term (current) use of oral hypoglycemic drugs; Z79.02 Long term (current) use of antithrombotics/antiplatelets; Z79.899 Other long term (current) drug therapy
CPT/HCPCS: 36000; 36415; 80053; 81001; 82607; 82746; 83605; 83615; 84145; 84550; 85025; 85610; 85730; 87040; 87046; 87070; 87075; 87205; 89051; 93005; 93041; 93971; 96365; 99285